=== PATIENT | female | born 1960 | race Caucasian/White ===

== ENCOUNTER → 2021-04-23 | Outpatient (CLI) | payer MEDICARE | LOC: CT 13:00 | DX: C50.812 Malignant neoplasm of overlapping sites of left female breast (principal); R52 Pain, unspecified; J90 Pleural effusion, not elsewhere classified; R91.8 Other nonspecific abnormal finding of lung field | CPT/HCPCS: 71250; Q9967 ==

== ENCOUNTER → 2021-08-31 | Outpatient (CLI) | payer MEDICARE | LOC: CT 11:00 | DX: C50.812 Malignant neoplasm of overlapping sites of left female breast (principal); R52 Pain, unspecified; Z51.11 Encounter for antineoplastic chemotherapy; J90 Pleural effusion, not elsewhere classified; R91.1 Solitary pulmonary nodule; R59.9 Enlarged lymph nodes, unspecified | CPT/HCPCS: 71250 ==